=== PATIENT | female | born 2005 | race Caucasian/White ===

== ENCOUNTER 2023-08-09 17:03 | Emergency (ER) | payer BC ==
[2023-08-09 17:17] VITALS: TEMP 97.6; O2SAT 96
--- NOTE | 2023-08-09 17:32 | ERPHSYRPT ---
- History of Present Illness Time Seen by Provider: 08/09/23 17:20 Historian: patient Exam Limitations: no limitations Patient Subjective Stated Complaint: Chest pain Triage Nursing Assessment: Patient ambulated back to ED and transferred self to bed. Patient A+O X3. Patient's skin pink, warm and dry. Patient complains of SOB and CP after she was leaning down to pick something up and she fell into the arm of couch, which is wood and hit chest. Patient currently complains of chest disomfort /. Lungs clear a/p caterina. Physician History: Patient is a 18-year-old white female who presents with a complaint of some so rtness of breath. She gives a history of having a ferret as a pet and this. Jumped out of her arms and when she bent over to pickle sorter the ferret her left anterior upper chest hit the end of a couch which had a wooden frame.The edge of the furniture hit the right upper anterior chest and there is some redness and tenderness there she was short of breath with it for a while but is breathing better now. Timing/Duration: today Activities at Onset: activity (Chasing her fair at) Quality: stabbing Nitro Today/Relief: no nitro taken today Aspirin Treatment Today: no aspirin today Allergies/Adverse Reactions: amoxicillin Allergy (Verified 08/09/23 17:05) Hx Influenza Vaccination/Date Given: Yes Hx Pneumococcal Vaccination/Date Given: No Immunizations Up to Date: Yes Travel Risk - International Travel Have you traveled outside of the country in past 3 weeks: No - Emerging Infectious Disease Are you exhibiting symptoms associated with any current EIDs: No - Review of Systems Constitutional: No Fever, No Chills Eyes: No Symptoms Ears, Nose, & Throat: No Symptoms Respiratory: No Cough, No Dyspnea Cardiac: No Chest Pain, No Edema, No Syncope Abdominal/Gastrointestinal: No Abdominal Pain, No Nausea, No Vomiting, No Diarrhea Genitourinary Symptoms: No Dysuria Musculoskeletal: No Back Pain, No Neck Pain Skin: No Rash Neurological: No Dizziness, No Focal Weakness, No Sensory Changes Psychological: No Symptoms Endocrine: No Symptoms All Other Systems: Reviewed and Negative - Past Medical History Pertinent Past Medical History: Yes Neurological History: No Pertinent History ENT History: No Pertinent History Musculoskeletal History: No Pertinent History GI Medical History: No Pertinent History History: No Pertinent History Psycho-Social History: Anxiety Female Reproductive Disorders: No Pertinent History Other Medical History: IGA deficiency - Past Surgical History Past Surgical History: Yes Neuro Surgical History: No Pertinent History Cardiac: No Pertinent History Respiratory: No Pertinent History Gastrointestinal: No Pertinent History Genitourinary: No Pertinent History Musculoskeletal: Orthopedic Surgery Female Surgical History: No Pertinent History Other Surgical History: Carpal tunnel right wrist. Narcolepsy - Female History Hx Last Menstrual Period: last month Hx Now: No - Social History Smoking Status: Never smoker Exposure to second hand smoke: No Drug Use: none - Social Determinants of Health Will the patient participate in the screening: Yes Do you worry about a steady place to live?: No Do you have any problems with any of the following?: No known problems In the past 12 months,have you had to go without utilities?: No Transportation Issues: No Has anyone in your support network made you feel unsafe?: No Have you or anyone in your house had to go without enough: No - Nursing Vital Signs Nursing Vital Signs: Initial Vital Signs Pulse Rate 88 08/09/23 17:06 Respiratory Rate 17 08/09/23 17:06 Blood Pressure 117/90 08/09/23 17:06 O2 Sat by Pulse Oximetry 100 08/09/23 17:06 Pain Scale Pain Intensity 2 - Physical Exam General Appearance: mild distress, alert Eye Exam: PERRL/EOMI, eyes nml inspection Ears, Nose, Throat Exam: normal ENT inspection, moist mucous membranes Neck Exam: normal inspection, non-tender, supple, full range of motion Respiratory Exam: normal breath sounds, chest tenderness (Chest tenderness in the area where the blow from the furniture hit the chest.), lungs clear, No respiratory distress Cardiovascular Exam: regular rate/rhythm, normal heart sounds Gastrointestinal/Abdomen Exam: soft, No tenderness, No mass Back Exam: normal inspection, No CVA tenderness, No vertebral tenderness Extremity Exam: normal inspection, normal range of motion Neurologic Exam: alert, oriented x 3, cooperative, normal mood/affect, sensation nml, No motor deficits Skin Exam: normal color, warm, dry SpO2: 96 - Course Nursing assessment & vital signs reviewed: Yes - Radiology Exams Chest X-ray Interpretation: Reviewed by me, Negative, No Fracture, No Pneumothorax Ordered Tests: Active Orders 24 hr Category Date Time Status CHEST 2 VIEWS (PA AND LAT) Stat Exams 08/09/23 17:23 Taken Medication Summary Discontinued Medications Generic Name Dose Route Start Last Admin Trade Name Paul PRN Reason Stop Dose Admin Fentanyl Citrate 25 mcg 08/09/23 17:24 08/09/23 17:57 Fentanyl Citrate 100 Mcg/2 Ml* Vial IV 08/09/23 17:25 Not Given STAT ONE - Progress Progress: improved Air Movement: good Blood Culture(s) Obtained: No Antibiotics given: No Medical Desision Making - Independent Historian Additional History obtained from: Mother - Diagnostic Testing Radiological Interpretation: Reviewed by me - Risk of complications Minimal Risk: Minimal risk of morbidity - Departure Departure Disposition: Home Clinical Impression: Chest wall pain Condition: Stable Critical Care Time: No Referrals: VIANEY MONET [Primary Care Provider] - Follow up/PCP as directed Instructions: Chest Pain, Adult ED
[2023-08-09] MEDS: SUBLIMAZE 100 MCG/2 ML IV ONE (17:57)
[2023-08-09 18:30] VITALS: BP 123/73; PULSE 83; RESP 16
--- NOTE | 2023-08-10 08:57 | XRAY ---
Indication: Pain. Comparison: None Portable chest demonstrates normal heart, lungs, and bony thorax.
== END 2023-08-09 18:35 | disposition home or self-care (01) ==
LOC: ED 17:03
DX: R07.89 Other chest pain (principal); R06.02 Shortness of breath
CPT/HCPCS: 71046; 99281